=== PATIENT | male | born 1990 | race American Indian/Alaskan Native ===

== ENCOUNTER 2017-09-09 19:18 | Emergency (ER) | payer SELFPAY ==
[2017-09-09 19:37] VITALS: BP 131/97
[2017-09-09 20:40] LABS: Basophils % (Auto) 0.6 % (0.0-1.8); Eosinophils # (Auto) 0.1 K/mm3 (0.0-0.4); Eosinophils % (Auto) 2.4 % (0.0-4.3); Hematocrit 49.4 % (35.5-45.6); Hemoglobin 16.5 gm/dl (11.8-15.2); Lymphocytes # (Auto) 2.3 K/mm3 (1.2-5.4); Lymphocytes % (Auto) 50.5 % (13.4-35.0); Mean Corpuscular HGB Conc 33 % (32-34); Mean Corpuscular Hemoglobin 29 pg (28-32); Mean Corpuscular Volume 88 fl (84-94); Monocytes # (Auto) 0.3 K/mm3 (0.0-0.8); Monocytes % (Auto) 7.7 % (0.0-7.3); Platelet Count 239 K/mm3 (140-440); Red Blood Count 5.63 M/mm3 (3.65-5.03)
[2017-09-09 21:11] LABS: Alanine Aminotransferase 14 units/L (7-56); Albumin 4.8 g/dL (3.9-5); BUN/Creatinine Ratio 19; Blood Urea Nitrogen 15 mg/dL (9-20); Calcium 9.7 mg/dL (8.4-10.2); Hemolysis Index 6
--- NOTE | 2017-09-09 21:56 | Emergency Department Report ---
HPI - General Chief Complaint: Sore Throat Time Seen by Provider: 09/09/17 21:51 - HPI HPI: Patient is a 27-year-old male with no prominent medical history who presents to ED complaining of left-sided lower jaw tenderness and mild swelling. Patient states this has happened 3 times in the past 5 months. And is worried so he wanted to get checked out. He denies seizure, throat pain, shortness of breath , chest pains, fever, trauma or any lesions, Difficulty breathing ED Past Medical Hx - Past Medical History Hx Asthma: Yes - Social History Smoking Status: Current Every Day Smoker Substance Use Type: Marijuana - Medications Home Medications: Home Medications Medication Instructions Recorded Confirmed Last Taken Type Diclofenac Dr [Voltaren Dr] 75 mg PO Q12H #20 tablet 01/26/14 Unknown Rx Ibuprofen [Motrin] 800 mg PO Q8HR PRN #30 tablet 09/09/17 Unknown Rx Sulfamethoxazole/Trimethoprim 1 each PO BID #14 tablet 09/09/17 Unknown Rx [Bactrim DS TAB] ED Review of Systems ROS: Stated complaint: MORENA Other details as noted in HPI Constitutional: denies: chills, fever Eyes: denies: eye pain, eye discharge, vision change ENT: denies: ear pain, throat pain Respiratory: denies: cough, shortness of breath, wheezing Cardiovascular: denies: chest pain, palpitations Endocrine: no symptoms reported Gastrointestinal: denies: abdominal pain, nausea, diarrhea Genitourinary: denies: urgency, dysuria Musculoskeletal: denies: back pain, joint swelling, arthralgia Skin: denies: rash, lesions Neurological: denies: headache, weakness, paresthesias Psychiatric: denies: anxiety, depression Hematological/Lymphatic: denies: easy bleeding, easy bruising Physical Exam - Physical Exam Vital Signs: Vital Signs 09/09/17 19:33 Temperature 97.9 F Pulse Rate 78 Blood Pressure 131/97 Physical Exam: GENERAL: Alert and oriented x3, no apparent distress, Normal Gait, atraumatic. HEAD: Head is normocephalic and a-traumatic. EYES: Extra ocular muscles are intact. Pupils are equal, round, and reactive to light and accommodation. EARS: symetrical, atraumatic, non tender, ear canal clear and moderate cerumen, tympanic membrance non inflamed. gross auditory nml bilaterally. MOUTH:Mouth is well hydrated and without lesions. Tonsils nonerythematous or swollen, Uvula midline, Tongue not elevated. Mucous membranes are moist. Posterior pharynx clear, no exudate or lesions. Patent airways. NECK: Supple. Non edematous, No carotid bruits. mild sub mandibular left sided lymphadenopathy , no thyromegaly. No C-spine tenderness LUNGS: Symetrical with respiration, No wheezing, no rales or crackles, CTAB. NEUROLOGIC: The patient is cooperative with no focal neurologic deficits. Cranial nerves II through XII are grossly intact. Normal speech. SKIN: Warm and dry, No lesions, No ulceration or induration present. ED Course Vital Signs 09/09/17 19:33 Temperature 97.9 F Pulse Rate 78 Blood Pressure 131/97 ED Medical Decision Making - Lab Data Result diagrams: 09/09/17 20:17 09/09/17 20:17 - Medical Decision Making 27-year-old male presents with mandibular lymphadenopathy. Discussed follow-up with primary care physician. Discussed patient may need STD screening to check for any disorder All labs within normal limits no signs of infections Discussed the follow-up with ENT as referred. Vital signs are stable,he's acute distress patient has no respiratory distress. Airway is clear. Patient states he understands instruction mother was present with the patient during ED stay and understands instructions Referral is given for follow-up. Critical care attestation.: If time is entered above; I have spent that time in minutes in the direct care of this critically ill patient, excluding procedure time. ED Disposition Clinical Impression: Lymphadenitis, Lymphadenopathy of left cervical region Disposition: DC- TO HOME OR SELFCARE Is pt being admited?: No Does the pt Need Aspirin: No Condition: Stable Instructions: Lymphadenopathy (ED), Lymphangitis (ED), Adenitis (ED) Additional Instructions: Make sure to follow up with the primary care physician as discussed. Take all your medications as you've been prescribed. Follow-up with the health Department for STD screening. She has not had STD screening in the past. Please do If you have any worsening symptoms or develop new symptoms please return to ED immediately. Prescriptions: Ibuprofen [Motrin] 800 mg PO Q8HR PRN #30 tablet PRN Reason: Pain Sulfamethoxazole/Trimethoprim [Bactrim DS TAB] 1 each PO BID #14 tablet Referrals: PRIMARY CARE, [Primary Care Provider] - 3-5 Days [facility] [Outside] - 3-5 Days [facility] [Outside] - 3-5 Days [facility] [Provider Group] - 3-5 Days ENT [facility] [Provider Group] - 3-5 Days Forms: Accompanied Note, Work/School Release Form(ED) Time of Disposition: 22:01
== END 2017-09-09 22:10 | disposition home or self-care (01) ==
LOC: ED 19:18
DX: I88.9 Nonspecific lymphadenitis, unspecified (principal); J45.909 Unspecified asthma, uncomplicated; F17.200 Nicotine dependence, unspecified, uncomplicated; F12.90 Cannabis use, unspecified, uncomplicated
CPT/HCPCS: 36415; 80053; 85025; 99283

== ENCOUNTER 2020-05-04 19:18 | Emergency (ER) | payer SELFPAY ==
[2020-05-04 20:24] VITALS: BP 156/94
--- NOTE | 2020-05-04 20:38 | Emergency Department Report ---
Chief Complaint: Laceration/Recheck/Suture Stated Complaint: REMOVAL OF STITCHES Time Seen by Provider: 05/04/20 20:28 - HPI History of Present Illness: This is a 30-year-old male with no apparent distress, no medical history presents the ED wanting suture removal that was placed March 03, 2020 at [facility]. Patient states he initially had an accident and the injury to the left ring and middle finger he sustained in no fracture and orthodoxy. He got treated at [facility] on the . Patient states that a few has not followed up yet as he has been told. He presents here for suture removal. Patient has no other complaints. Medical problems at this time. - ROS Review of Systems: All systems reviewed and negative - Exam Vital Signs: Vital Signs 05/04/20 20:15 Temperature 98.1 F Pulse Rate 93 H Respiratory 16 Rate Blood Pressure 156/94 O2 Sat by Pulse 99 Oximetry Physical Exam: GENERAL: Alert and oriented x3, no apparent distress, Normal Gait, atraumatic. HEAD: Head is normocephalic and a-traumatic. EXTREMITIES/MUSCULOSKELETAL: No cyanosis, clubbing, rash, lesions or edema. Left cover Mani bandage SKIN: Warm and dry, No lesions, No ulceration or induration present. MSE screening note: Focused history and physical exam performed. Due to findings the following was ordered: ED Medical Decision Making - Medical Decision Making 30-year-old male presented for suture removal I discussed with patient due to the sutures placed at [facility] he have to go to also to have them removed. Patient states understanding and will follow-up for at [facility] for suture removal. At this point time patient is in no acute respiratory distress. He will follow- up at [facility] in the morning to have the sutures removed and for close assessment fracture. ED Disposition for MSE Clinical Impression: Suture check Disposition: Z MED SCREENING EXAM-LEFT Is pt being admited?: No Does the pt Need Aspirin: No Condition: Stable Time of Disposition: 20:42
== END 2020-05-04 20:53 | disposition left against medical advice (07) ==
LOC: ED 19:18
DX: S61.215A Laceration without foreign body of left ring finger without damage to nail, initial encounter (principal); Z48.02 Encounter for removal of sutures; Z53.21 Procedure and treatment not carried out due to patient leaving prior to being seen by health care provider; X58.XXXA Exposure to other specified factors, initial encounter; Y93.89 Activity, other specified; Y92.89 Other specified places as the place of occurrence of the external cause; Y99.8 Other external cause status